=== PATIENT | male | born 1930 | race Caucasian/White ===

== ENCOUNTER → 2016-04-05 | Day surgery (SDC) | payer MEDICARE, OTHER ==
[~2016-04-05] MED LIST: BUPIVACAINE/EPINEPHRINE 0.25% PF 30 ML VIAL ONE; LACTATED RINGER'S 1000 ML INJ 1,000 ML ONE; PROPOFOL 200 MG/20 ML AMP IV ONE; ceFAZolin 2 GM PREMIX 50 ML ONE
--- NOTE | 2016-04-08 11:31 | TN ---
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 PROCEDURE Re-excision for margins of right mid forearm extensor intermediate thickness melanoma. ESTIMATED BLOOD LOSS Less than 5 cc. COMPLICATIONS None. FINDINGS A small amount of residual pigmentation on the medial radial part of the patient's forearm completely removed grossly. INDICATION FOR PROCEDURE The patient is a 35-year-old male who had a previous wide excision of an intermediate thickness melanoma and sentinel lymph node biopsy. The patient was noted to have one positive margin of his melanoma on the radial side of his excision site from the 12 o'clock down to the 6 o'clock area. After a discussion with the patient about the evaluation of positive margins, we felt that once he has completely healed from his previous surgery we would bring the patient back to the operating room for re-excision for negative margins. He agreed to undergo the procedure. The risks, benefits and alternatives were explained to the patient fully. All his questions were answered to his satisfaction. PROCEDURE After informed was obtained, the patient was taken to the operating room and placed under sedation. The patient's right upper forearm was prepped and draped in sterile fashion. Timeout was performed. Local anesthetic was instilled, 0.25% Marcaine with epinephrine, throughout the planned excision site in the forearm. Once this had fully taken effect, we marked out an area approximately 8 cm x 3 cm and excised this with a 15-blade scalpel. This incorporated almost the entire scar but we took at least 2 cm in the 12 o'clock to 6 o'clock part of the scar which was the positive margin and just under a centimeter on the margin negative side of the scar. This was then marked with a stitch 12 o'clock superior and passed off for permanent processing. We got excellent hemostasis with the Bovie electrocautery. We closed this with deep dermal 2-0 Vicryl sutures with minimal tension. We then placed Steri-Strips and a sterile dressing on the wound. The patient at this time was discontinued from anesthesia and taken the PACU in stable condition. The patient tolerated the procedure well with no apparent complications. All counts were correct. I was present and scrubbed for the entire procedure. MD MICHAEL Ferris/BJJorge /10:13 PM /10:57 AM
== END | disposition home or self-care (01) ==
LOC: ESDC 08:03
PROVIDERS: ATTEND Surgery
DX: C43.61 Malignant melanoma of right upper limb, including shoulder (principal)
CPT/HCPCS: 00400; 11606; 88305; J0690; J3010; J7120